=== PATIENT | male | born 1985 | race African-American/Black ===

== ENCOUNTER 2016-10-05 18:10 | Emergency (ER) | payer SELFPAY | END 2016-10-05 20:57 | disposition left against medical advice (07) | LOC: CED 18:10 | DX: Z53.21 Procedure and treatment not carried out due to patient leaving prior to being seen by health care provider (principal) ==

== ENCOUNTER 2016-10-08 17:22 | Emergency (ER) | payer SELFPAY | END 2016-10-08 18:05 | disposition home or self-care (01) | LOC: CFTX 17:22 → CED 17:22 → CFTX 18:04 | DX: K04.7 Periapical abscess without sinus (principal); F17.210 Nicotine dependence, cigarettes, uncomplicated; Z76.5 Malingerer [conscious simulation] | CPT/HCPCS: 99282 ==